=== PATIENT | female | born 1960 | race Caucasian/White ===

== ENCOUNTER 2018-08-23 13:46 | Emergency (ER) | payer OTHER, MEDICAID, SELFPAY ==
[2018-08-23 13:57] VITALS: BP 142/85; PULSE 74; RESP 18; TEMP 36.2; O2SAT 98; BMI 22.1
--- NOTE | 2018-08-23 15:20 | ED_ITS ---
HPI - Skin/Abscess/Foreign Bdy General Chief complaint: Skin/Abscess/Foreign Body Stated complaint: ABDOMINAL INGROWN HAIR LARGE AND PAINFUL Time Seen by Provider: 08/23/18 15:12 Source: patient Mode of arrival: ambulatory Limitations: no limitations History of Present Illness HPI narrative: This is a 58-year-old female comes to the emergency department with complaint of swelling and erythema and concern for abscess on her right chest underneath the breast patient states been there for almost 2 weeks. It started out a very small almost pimple and has gotten larger. She states initially it was had a small black spot like it might have been ingrown hair. She saw her primary care thought that it was an ingrown hair. She is on warm compresses for several days and has not improved and has gotten larger and more painful and now has a lea. Patient has not fevers, she denies any other symptoms. She has not had similar symptoms in the past. She does take medication for blood pressure. Related Data Home Medications Medication Instructions Recorded Confirmed amlodipine 5 mg PO DAILY 08/23/18 08/23/18 atenolol-chlorthalidone 1 tab PO DAILY 08/23/18 08/23/18 losartan 100 mg PO DAILY 08/23/18 08/23/18 pantoprazole 20 mg PO DAILY 08/23/18 08/23/18 Previous Rx's Medication Instructions Recorded clindamycin HCl 300 mg PO QID 5 Days #20 cap 08/23/18 Review of Systems Review of Systems All systems reviewed & are unremarkable except as noted in HPI and below Constitutional Denies fever(s) Cardiovascular Reports chest pain (at site of infection) and Denies dyspnea Respiratory Denies dyspnea Gastrointestinal Gastrointestinal: Denies abdominal pain, Denies nausea and Denies vomiting Integumentary/Breasts Reports as per HPI, Reports erythema, Reports skin pain, Reports skin swelling and Reports other (fluctuence ) [facility] Social History Smoking Status: Current every day smoker Exam Narrative Exam Narrative: GENERAL: Alert and oriented x three, well-nourished, well- appearing female in mild distress. HEENT: Head normocephalic, atraumatic, EOMI, pupils reactive, face symmetric, moist mucous membranes NECK: Supple, full range of motion CARDIOVASCULAR: Regular rate and rhythm without murmurs, rubs or gallops. RESPIRATORY: Breath sounds equal bilaterally, no wheezes rales or rhonchi. ABDOMEN: Soft, nontender. Normoactive bowel sounds all 4 quadrants. No guarding or rebound, rigidity, no mass EXTREMITIES: Normal range of motion, no clubbing or edema. Neurovascularly intact NEUROLOGICAL: Cranial nerves II through XII grossly intact. Moving all extremities SKIN: Warm, dry, no petechiae, patient has a 2 cm x 1 cm area of erythema with fluctuance on and centralized white discoloration. Area is soft and quite tender. There is a small area of erythema extending beyond about a cm. Patient does not have any other rashes or skin changes. Initial Vital Signs Initial Vital Signs: Vital Signs Temperature 97.2 F L 08/23/18 13:57 Pulse Rate 74 08/23/18 13:57 Respiratory Rate 18 08/23/18 13:57 Blood Pressure 142/85 H 08/23/18 13:57 Pulse Oximetry 98 08/23/18 13:57 Procedures Abscess I/D Site: chest (Anterior chest underneath the right breast) Local Anesthetic: lidocaine 1% Amount of anesthesia used (mL): 1.5 Technique: incised with #11 blade Amount of fluid expressed (mL): 1 Irrigation: Yes Packing used?: none Complications: pain and bleeding (oozing) Course Vital Signs - 8 hr 08/23/18 13:57 08/23/18 16:00 Temperature 97.2 F L Pulse Rate 74 77 Respiratory Rate 18 20 Blood Pressure 142/85 H 143/88 H Pulse Oximetry 98 98 MDM - Skin/Abscess/Foreign Bdy Differential Diagnosis Likely abscess of skin or subcutaneous tissue MDM Narrative Medical decision making narrative: Patient has incision and drainage of abscess. Discussed to get 12:48 p.m. see if it is improving after drainage. If it is not or if it seems to be getting worse quickly to go ahead and start antibiotics. Discharge Plan Departure Patient Disposition: Home Clinical Impression: Abscess of chest wall Discharge Date/Time: 08/23/18 16:01 Interventions: ED Discharge Assessment Last Done: 08/23/18 16:00 Instructions: DI for Incision and Drainage of a Skin Abscess Activity Restrictions/Additional Instructions: Follow-up in the next 5-7 days for recheck if her symptoms are not completely resolving Start antibiotics after 24-48 hours if redness and erythema are not resolving or you're still having drainage. Use hot compresses or warm soaks to the affected area 3 times daily. Return to the ER for fevers, worsening redness, rapidly increasing swelling, worsening drainage or other new or concerning symptoms. Prescriptions: New clindamycin HCl 300 mg capsule 300 mg PO QID 5 Days Qty: 20 RF: 0 No Action atenolol-chlorthalidone 100-25 mg tablet 1 tab PO DAILY RF: 0 amlodipine 5 mg tablet 5 mg PO DAILY RF: 0 pantoprazole 20 mg tablet,delayed release (DR/EC) 20 mg PO DAILY RF: 0 losartan 100 mg tablet 100 mg PO DAILY RF: 0
[2018-08-23 16:00] VITALS: BP 143/88; PULSE 77; RESP 20; O2SAT 98
== END 2018-08-23 16:01 | disposition home or self-care (01) ==
PROVIDERS: Emergency Provider Emergency Medicine
DX: L02.213 Cutaneous abscess of chest wall (principal)
CPT/HCPCS: 99282